=== PATIENT | female | born 1945 | race Caucasian/White ===

== ENCOUNTER → 2019-10-11 12:34 | Outpatient (CLI) | payer MEDICARE, SELFPAY ==
--- NOTE | 2019-10-11 12:36 | CA_ITS ---
APPROVED REPORT EXAM: Comprehensive 2D, Doppler, and color-flow Echocardiogram Business Continuity Planner: Maria Del Rosario Pereira RDCS Ht: 5 ft 5 in Wt: 160lbs BSA: 1.80 BP: 126/80 mmHg Indications: HTN,CAD,CP,SOA 2D Dimensions LVOT 2.15 cm (M/F) 1.5-2.5 M-Mode Dimensions RVDd 2.54 cm (0.9-2.6) LVDd 4.35 cm (3.5-5.7) LVDs 2.74 cm (3.5-5.7) IVSd 1.65 cm (0.6-1.1) PWd 1.09 cm (0.6-1.1) EF (Teich) 67.20% FS 37.00% EDV (Teich) 85.40 mL ESV (Teich) 28.00 mL LV Diastology E/A Ratio 0.61 Aortic Valve LVOT Max 90.00 (70-110 cm/s) LVOT VTI 20.61 cm Mitral Valve MV A Velocity 91.00 (40-130 cm/s) Left Ventricle Left atrium is mildly enlarged, left ventricle is normal size, moderate concentric left ventricular hypertrophy, visually estimated ejection fraction 55 to 60% with no regional wall motion abnormality, grade 1 diastolic dysfunction seen with tissue Doppler evidence of raise left atrial pressure. Right Ventricle Right atrium and right ventricular normal size and contractility. Aortic Valve Aortic valve is thickened and calcified leaflet chordae display good mobility, there is no aortic stenosis or aortic insufficiency. Mitral Valve Mitral valve leaflets are minimally thickened, chordal structures are mildly calcified, there is no mitral stenosis, there is mild mitral regurgitation. Tricuspid Valve Tricuspid valve is grossly normal, there is mild tricuspid regurgitation, tricuspid regurgitation jet velocity is inadequate for calculation of the right ventricular systolic pressure. Pulmonic Valve Pulmonic valve is poorly visualized. Great Vessels Aortic root is normal size. Pericardium No significant pericardial effusion noted. Conclusion 1. Mildly enlarged left atrium, normal left ventricular size, moderate concentric left ventricular hypertrophy, visually estimated ejection fraction 55 to 60% with no regional wall motion abnormality, grade 1 diastolic dysfunction seen with tissue Doppler evidence of raise left atrial pressure. 2. Mild mitral and tricuspid regurgitation. 3. No significant pericardial effusion noted. Electronically signed by : Eloy Espinal, 10/11/2019 19:56:20
== END ==
PROVIDERS: PCP Family Medicine; Visit Provider Physician Assistant
DX: I20.8 Other forms of angina pectoris; E78.2 Mixed hyperlipidemia; I11.9 Hypertensive heart disease without heart failure; I27.20 Pulmonary hypertension, unspecified; I65.23 Occlusion and stenosis of bilateral carotid arteries; Z72.0 Tobacco use; Z98.890 Other specified postprocedural states
CPT/HCPCS: 93306

== ENCOUNTER 2020-03-19 10:00 | Day surgery (SDC) | payer MEDICARE, SELFPAY ==
[2020-03-19] VITALS (27 sets, daily range): BP systolic 98–133; BP diastolic 51–72; PULSE 57–80; RESP 13–18; TEMP 36.6; O2SAT 86–100; BMI 26.8
--- NOTE | 2020-03-19 | IR_ITS ---
APPROVED REPORT Patient Location: Outpatient PROCEDURES Right femoral arterial access Catheter placement in the right subclavian artery Right subclavian artery selective angiogram Catheter placement in the right axillary artery Right axillary artery selective angiogram INDICATION Right subclavian artery stenosis, Peripheral artery disease Informed consent was obtained prior to the procedure. COMPLICATIONS NONE Estimated Blood Loss: LESS THAN 10 ML TECHNIQUE 1% lidocaine used anesthetize right groin the right femoral artery was accessed via the Salinger technique and a 5 [place] sheath was placed in the right femoral artery. The JR4 catheter was used to cannulate the right subclavian artery and perform angiography. A Choice PT wire was then placed distal to the stenosis and the catheter was advanced and axillary angiography was performed. With the PT wire in place the catheter was pulled back from the axillary artery into the innominate artery demonstrating a 15 mm Sofia stenotic gradient with a 5 [place] catheter across the subclavian stenosis. Therapeutic heparin was administered with anticipation of undergoing percutaneous intervention however after further angiography it was decided to treat patient medically at this point and then refer to facility that can potentially perform carotid stenting while using distal protection device. The apparatus was removed the patient was transferred to the postop holding her stable addition for sheath removal ANGIOGRAPHIC RESULTS The innominate artery is widely patent with mild atherosclerotic plaque The right common carotid artery is patent with mild nonflow-limiting atheromatous plaque in the proximal segment nothing greater than 10 to 20% The right subclavian artery has an 80 to 90% stenosis at its origin which is adjacent to the lateral limb of the right common carotid artery. The distal right subclavian artery and proximal right axillary artery has mild atheromatous plaque with no stenosis greater than 20% IMPRESSION Severe right subclavian stenosis at its origin which is immediately adjacent to the origin of the right common carotid artery 50 mm Sofia stenotic gradient across the right subclavian artery stenosis using a 5 [place] JR4 catheter. PLAN 1. Severe right subclavian artery stenosis with a Sofia stenotic gradient less than 50 mmHg given there was obturation across the lesion with this 5 [place] catheter 2. Given patient's excessive tobacco usage it may be reasonable to proceed with medical management. I suspect patient's gradient is probably in the 15 to 20 mm range and given the juxtaposition of the stenosis to the right common carotid artery is probably reasonable to proceed with medical management. I do not believe patient would overtly benefit from a high risk subclavian stenosis with the potential to embolize into the right vertebral artery as well as potentially plaque shift into the right common carotid artery. 3. Continue statin therapy with a goal LDL less than 55 4. Xarelto 2.5 twice daily plus aspirin 81 mg daily Electronically signed by : John Garrett, 03/19/2020 12:58:22
[2020-03-19 10:42] LABS: Basophils # 0.1 K/mm3 (0-0.2); Basophils % 0.9 % (0.1-2.0); Eosinophils # 0.3 K/mm3 (0.0-0.4); Eosinophils % 2.3 % (0.1-12.0); Hemoglobin 9.8 g/dL (12.2-16.2); Lymphocytes # 1.6 K/mm3 (0.7-4.5); Lymphocytes % 14.3 % (10-50); Mean Corpuscular HGB Conc 28.9 g/dL (31.8-35.4); Mean Corpuscular Hemoglobin 21.5 pg (27.0-31.2); Mean Corpuscular Volume 74.6 fl (81-99); Mean Platelet Volume 9.4 fl (7.4-10.4); Monocytes # 0.5 K/mm3 (0.1-1.0); Monocytes % 4.4 % (1.7-9.3); Neutrophils # 8.6 K/mm3 (1.8-7.8); Neutrophils % 78.1 % (37.0-80.0); Platelet Count 233 K/mm3 (142-424); Red Blood Count 4.56 M/mm3 (4.20-5.40); Red Cell Distribution Width 16.4 % (11.5-17.5)
[2020-03-19 10:45] LABS: Chloride 103 mmol/L (98-107)
[2020-03-19 10:46] LABS: Potassium 3.9 mmoL/L (3.5-5.1); Sodium 138 mmol/L (136-145)
[2020-03-19 10:48] LABS: Blood Urea Nitrogen 17 mg/dl (7-17); Creatinine Clearance Estimated 59 mL/min (50-200); Estimated Glomerular Filt Rate 55 ml/min (>60); GFR (African American) 66 ML/MIN (>60)
[2020-03-19 10:49] LABS: Anion Gap 10.9 mEq/L (5-15); Calcium 9.5 mg/dl (8.4-10.2); Carbon Dioxide 28 mmol/L (22.0-30.0); Glucose 97 mg/dl (74-100)
[2020-03-19 11:01] LABS: Coronavirus 19 IgG Antibody Negative (Negative); Coronavirus 19 IgM Antibody Negative (Negative)
[2020-03-19 13:54] LABS: CATHL Activated Clotting Time 254 SEC (74-125)
[2020-03-19 13:55] LABS: CATHL Activated Clotting Time 161 SEC (74-125)
== END 2020-03-19 16:46 ==
LOC: CATHLAB 10:01
PROVIDERS: PCP Family Medicine; Visit Provider Internal Medicine
DX: I77.1 Stricture of artery (principal); I25.118 Atherosclerotic heart disease of native coronary artery with other forms of angina pectoris; I25.83 Coronary atherosclerosis due to lipid rich plaque; I65.23 Occlusion and stenosis of bilateral carotid arteries; J44.9 Chronic obstructive pulmonary disease, unspecified; Z72.0 Tobacco use; I11.0 Hypertensive heart disease with heart failure; E03.9 Hypothyroidism, unspecified; I27.20 Pulmonary hypertension, unspecified; Z88.0 Allergy status to penicillin; Z88.8 Allergy status to other drugs, medicaments and biological substances; Z79.899 Other long term (current) drug therapy
CPT/HCPCS: 36216; 36225; 80048; 85025; 85347; 86328; 99152; C1725; C1769; J1644; J2720; Q9967